=== PATIENT | female | born 1965 | race Caucasian/White ===

== ENCOUNTER 2021-04-06 16:46 | Emergency (ER) | payer OTHER ==
[~2021-04-06 16:46] MED LIST: AZITHROMYCIN250 MG PO; BACTRIM DS TAB1 EACH PO; PHENERGAN25 M1 PO; PRINIVIL20 MG PO; ZOFRAN8 MG PO
[2021-04-06 18:59] LABS: BASOPHIL 0.5 % (0-2); EOSINOPHIL 0 % (0-5); HCT 43.7 % (37.0-47.0); HGB 14.4 g/dl (12.5-16.0); LYMPHOCYTE 11.6 % (15-48); MCH 28.3 pg (25.0-31.0); MCV 85.9 fL (78.0-100.0); MONOCYTE 10.2 % (0-12); MPV 10.5 fL (6.0-9.5); NEUTROPHIL 76.4 % (41-80); NRBC 0; PLT 197 K/uL (150-400); RBC 5.09 M/uL (4.20-5.40); RDW 12.9 % (11.5-14.0); WBC 6.1 K/uL (4.0-10.5)
[2021-04-06 19:14] LABS: BUN/CREAT RATIO (CALC) 27.4 RATIO; CREATININE 0.62 mg/dL (0.51-0.95); POTASSIUM 3.7 mmol/L (3.5-5.1)
[2021-04-06 19:18] LABS: BILIRUBIN NEGATIVE (NEGATIVE); BLOOD 3+ Ery/uL (NEGATIVE); CLARITY HAZY (CLEAR); COLOR YELLOW (YELLOW); GLUCOSE (U) NORMAL (NORMAL); LEUKOCYTES NEGATIVE Leu/uL (NEGATIVE); NITRITE POSITIVE (NEGATIVE); PROTEIN 1+ mg/dL (NEGATIVE); SPECIFIC GRAVITY >=1.030 (1.001-1.030); UROBILINOGEN 0.2 mg/dL (0.2-1.0)
[2021-04-06 19:24] LABS: BACTERIA 4+
[2021-04-06 19:25] LABS: YEAST PRESENT
[2021-04-06] MEDS ORDERED: AUGMENTIN 875-1 EACH PO (21:19)
== END 2021-04-06 23:11 | disposition home or self-care (01) ==
LOC: FER 16:46
PROVIDERS: Nurse Practitioner Family
DX: U07.1 COVID-19 (principal); E86.0 Dehydration; B37.9 Candidiasis, unspecified; N39.0 Urinary tract infection, site not specified; I10 Essential (primary) hypertension; J44.9 Chronic obstructive pulmonary disease, unspecified; F17.210 Nicotine dependence, cigarettes, uncomplicated; Z98.51 Tubal ligation status; Z88.5 Allergy status to narcotic agent
CPT/HCPCS: 36415; 71045; 80048; 81001; 85025; 87076; 87088; 87186; J0696; J7030; M0243; Q0244; U0002

== ENCOUNTER 2021-04-18 10:08 | Emergency (ER) | payer OTHER ==
[~2021-04-18] VITALS: Ht 177.8 cm; Wt 90.7 kg
[~2021-04-18 10:08] MED LIST changes: +AUGMENTIN 875-1 EACH PO
[2021-04-18 11:11] LABS: BILIRUBIN NEGATIVE (NEGATIVE); BLOOD 2+ Ery/uL (NEGATIVE); CLARITY CLEAR (CLEAR); COLOR YELLOW (YELLOW); GLUCOSE (U) NORMAL (NORMAL); LEUKOCYTES NEGATIVE Leu/uL (NEGATIVE); NITRITE NEGATIVE (NEGATIVE); PROTEIN NEGATIVE (NEGATIVE); SPECIFIC GRAVITY 1.025 (1.001-1.030); UROBILINOGEN 0.2 mg/dL (0.2-1.0); pH 5.5 (5.0-9.0)
[2021-04-18] MEDS ORDERED: NEURONTIN100 MG PO (11:47)
[2021-04-18] MEDS ORDERED: NAPROXEN500 MG PO (11:47)
== END 2021-04-18 12:00 | disposition home or self-care (01) ==
LOC: FER 10:08
PROVIDERS: Emergency Medicine
DX: M51.16 Intervertebral disc disorders with radiculopathy, lumbar region (principal); M48.061 Spinal stenosis, lumbar region without neurogenic claudication; J44.9 Chronic obstructive pulmonary disease, unspecified; I10 Essential (primary) hypertension; F17.200 Nicotine dependence, unspecified, uncomplicated; Z86.16 Personal history of COVID-19; Z88.6 Allergy status to analgesic agent
CPT/HCPCS: 72131; 81001; 93971; 96372; J1040; J1885

== ENCOUNTER 2021-07-15 16:25 | Emergency (ER) | payer OTHER ==
[~2021-07-15 16:25] MED LIST changes: +NAPROXEN500 MG PO; +NEURONTIN100 MG PO
[2021-07-15 17:31] LABS: BILIRUBIN NEGATIVE (NEGATIVE); BLOOD 3+ Ery/uL (NEGATIVE); COLOR YELLOW (YELLOW); GLUCOSE (U) NORMAL (NORMAL); LEUKOCYTES NEGATIVE Leu/uL (NEGATIVE); NITRITE NEGATIVE (NEGATIVE); PROTEIN NEGATIVE (NEGATIVE); SPECIFIC GRAVITY 1.025 (1.001-1.030); UROBILINOGEN 0.2 mg/dL (0.2-1.0); pH 6.5 (5.0-9.0)
[2021-07-15 17:34] LABS: CLARITY SLIGHTLY HAZY (CLEAR)
[2021-07-15 17:45] LABS: BACTERIA TRACE; MUCOUS TRACE; URINARY RBC 20-50
[2021-07-15 17:50] LABS: BASOPHIL 0.5 % (0-2); EOSINOPHIL 1.9 % (0-5); HCT 42.6 % (37.0-47.0); HGB 13.8 g/dl (12.5-16.0); LYMPHOCYTE 29.9 % (15-48); MCH 29.1 pg (25.0-31.0); MCHC 32.4 g/dL (32.0-36.0); MCV 89.9 fL (78.0-100.0); MPV 10.5 fL (6.0-9.5); NEUTROPHIL 52.4 % (41-80); NRBC 0; PLT 204 K/uL (150-400); RBC 4.74 M/uL (4.20-5.40); RDW 13.2 % (11.5-14.0); WBC 6.4 K/uL (4.0-10.5)
[2021-07-15 18:24] LABS: ALBUMIN 3.9 g/dL (3.4-5.0); BILIRUBIN - TOTAL 0.4 mg/dL (0.2-1.0); BUN/CREAT RATIO (CALC) 20.8 RATIO; CREATININE 0.77 mg/dL (0.51-0.95); GLOBULIN (CALCULATION) 3.7 g/dL; POTASSIUM 4.2 mmol/L (3.5-5.1); TOTAL PROTEIN 7.6 g/dL (6.4-8.2)
== END 2021-07-15 22:02 | disposition left against medical advice (07) ==
LOC: FER 16:25
PROVIDERS: Emergency Medicine
DX: R06.02 Shortness of breath (principal); Z53.8 Procedure and treatment not carried out for other reasons
CPT/HCPCS: 36415; 71046; 80053; 81001; 82150; 83690; 85025

== ENCOUNTER 2021-12-30 02:53 | Emergency (ER) | payer OTHER ==
[2021-12-30 03:30] LABS: BASOPHIL 0.4 % (0-2); EOSINOPHIL 0.1 % (0-5); HCT 45.8 % (37.0-47.0); HGB 15.3 g/dl (12.5-16.0); LYMPHOCYTE 38.3 % (15-48); MCHC 33.4 g/dL (32.0-36.0); MCV 86.7 fL (78.0-100.0); MONOCYTE 6.5 % (0-12); MPV 11.5 fL (6.0-9.5); NEUTROPHIL 54.4 % (41-80); NRBC 0; PLT 273 K/uL (150-400); RBC 5.28 M/uL (4.20-5.40); RDW 13.1 % (11.5-14.0); WBC 10.7 K/uL (4.0-10.5)
[2021-12-30 03:47] LABS: ALBUMIN 4.5 g/dL (3.4-5.0); BILIRUBIN - TOTAL 0.5 mg/dL (0.2-1.0); CREATININE 0.8 mg/dL (0.51-0.95); GLOBULIN (CALCULATION) 3.4 g/dL; POTASSIUM 3.6 mmol/L (3.5-5.1); TOTAL PROTEIN 7.9 g/dL (6.4-8.2)
[2021-12-30 04:08] LABS: AMPHETAMINES NEGATIVE (NEGATIVE); BARBITURATES NEGATIVE (NEGATIVE); ECSTASY (MDMA) NEGATIVE (NEGATIVE); MARIJUANA (THC) POSITIVE (NEGATIVE); METHADONE NEGATIVE (NEGATIVE); OPIATES NEGATIVE (NEGATIVE)
[2021-12-30 04:09] LABS: OXYCODONE NEGATIVE (NEGATIVE)
[2021-12-30 04:21] LABS: CORONAVIRUS 2019 SARS-COV-2 NEGATIVE (NEGATIVE); INFLUENZA A NAA NEGATIVE (NEGATIVE)
[2021-12-30] MEDS ORDERED: ONDANSETRON ODT4 MG PO (06:19)
== END 2021-12-30 06:28 | disposition home or self-care (01) ==
LOC: FER 02:53
PROVIDERS: Emergency Medicine
DX: J06.9 Acute upper respiratory infection, unspecified (principal); R11.2 Nausea with vomiting, unspecified; J44.9 Chronic obstructive pulmonary disease, unspecified; I10 Essential (primary) hypertension; F17.200 Nicotine dependence, unspecified, uncomplicated; Z20.822 Contact with and (suspected) exposure to COVID-19; Z28.310 Unvaccinated for COVID-19; Z79.899 Other long term (current) drug therapy; Z88.5 Allergy status to narcotic agent
CPT/HCPCS: 36415; 71045; 80053; 80305; 84484; 85025; J2405; J7030; Q0169; U0002